=== PATIENT | female | born 1945 | race Caucasian/White ===

== ENCOUNTER 2024-10-07 20:38 | Emergency (ER) | payer OTHER ==
[2024-10-07 21:08] LABS: Absolute Basophils 0.1 K/uL (0-0.5); Absolute Eosinophils 0.4 K/uL (0-0.5); Absolute Lymphocytes (CBC) 2.6 K/uL (0.7-4.9); Absolute Monocytes 0.5 K/uL (0.1-1.3); Absolute Neutrophil 6.8 K/uL (1.8-8.0); Basophils % 1.1 % (0-1.3); Eosinophils % 4.2 % (0-4.4); Hematocrit 36.8 % (36.0-45.0); Hemoglobin 12.3 g/dL (12.0-15.0); MCH 29.2 pg (27.0-35.0); MCHC 33.4 g/dL (32.0-36.0); MCV 87.4 fL (80-100); MPV 8.1 fL (7.6-11.3); Monocytes % 4.6 % (3.3-12.3); Neutrophils % 65.1 % (41.7-73.7); Platelets 343 thou/uL (152-406); RBC Red Blood Cell Count 4.21 M/uL (3.86-4.86); Red Cell Distribution Width 14.4 % (12.1-15.2)
[2024-10-07 21:17] LABS: PT Prothrombin Time 12.2 SECONDS (10-13.0); PTT, Activated Partial Thromb 25.9 SECONDS (27.2-37.4); Protime INR 1.07
[2024-10-07 21:27] LABS: Influenza A Ag Negative; Influenza B Ag Negative; SARS-CoV-2 Antigen Rapid Res Negative (Negative)
[2024-10-07 21:28] LABS: Albumin 3.1 g/dL (3.4-5.0); Albumin/Globulin Ratio 0.7 (1.1-1.8); Anion Gap 6.8 mEq/L (5.0-15.0); Bilirubin Total 0.5 mg/dL (0.2-1.0); Globulin 4.2 g/dL (2.3-3.5); Potassium 3.8 mEq/L (3.5-5.1); Protein, Total 7.3 g/dL (6.4-8.2)
--- NOTE | 2024-10-07 22:05 | RAD REPORT ---
EXAMINATION: ONE VIEW CHEST XR CLINICAL INDICATION: Female, 79 years old.,COUGH TECHNIQUE: Frontal chest projection is submitted. Examination is limited by patient positioning and t echnique. COMPARISON: 10/06/2018 FINDINGS: The lungs are grossly clear although suboptimal inspiratory effort somewhat limits evaluation. Crowdi ng of the central vasculature. No pneumothorax or sizable effusion. The heart is normal in size. Mediastinal contours are unremarkable. IMPRESSION: No acute intrathoracic abnormalities.
--- NOTE | 2024-10-07 22:08 | EDPHYS ---
Physician Documentation [facility] Name: Ana Godinez Age: 79 yrs Sex: Female : 1945 Arrival Date: 10/07/2024 Time: 20:38 Bed 6 Private MD: ED Physician Celestino Chan HPI: 10/07 20:50 This 79 yrs old Female presents to ER via Unassigned with complaints of Flu ec2 Symptoms, Shortness Of Breath. 20:50 Patient arrives today for evaluation of cough symptoms. Patient been having cough with ec2 productive sputum, feeling subjectively short of breath, has lower extremity swelling as well.. Historical: - Allergies: 20:51 erythromycin; lg3 20:51 meloxicam; lg3 - Home Meds: 20:51 gabapentin oral [Active]; Fentanyl Patch Topical [Active]; Metformin Oral [Active]; lg3 Spironolactone Oral [Active]; - PMHx: 20:51 Diabetes mellitus; Arthritis; lg3 - PSHx: 20:51 Tonsillectomy; Total abdominal hysterectomy; lg3 - Immunization history:: Adult Immunizations up to date. - Infectious Disease History:: Denies. - Social history:: Smoking status: Patient denies any tobacco usage or history of. Patient/guardian denies using alcohol, street drugs. ROS: 20:50 Constitutional: as per hpi ec2 Exam: 20:50 Constitutional: GEN: NAD Head: atraumatic Eyes: EOMI Ears: External ears are ec2 normal. CV: Tachycardia LUNGS: no respiratory distress ABD: non-distended SKIN: no evidence of rashes, 1+ bilateral lower extremity edema noted. MSK: no evidence of trauma Vital Signs: 20:50 BP 174 / 74; Pulse 102; Resp 17 S; Temp 98.2(O); Pulse Ox 98% on R/A; Weight 115.67 kg lg3 (R); Height 5 ft. 6 in. (R); Pain 10/10; 21:40 BP 141 / 65; Pulse 94; Resp 18 S; Pulse Ox 96% on R/A; lg3 20:50 Body Mass Index 41.16 (115.67 kg, 167.64 cm) lg3 20:50 Pain Scale: Adult lg3 MDM: 20:49 Medical Screening Exam initiated ec2 21:14 Data reviewed: vital signs, nurses notes. ED course: EKG independently reviewed and ec2 interpreted by me, shows normal sinus rhythm, rate 93, no acute ST segment elevations, intervals are nonactionable.. 21:31 ED course: Metabolic profile shows some kidney dysfunction, hyperglycemia noted. CBC is ec2 reassuring. Viral swabs are negative. BNP within normal ranges.. 10/07 20:49 Order name: Blood Culture Adult (2) ec2 10/07 20:49 Order name: CBC with Diff; Complete Time: 21:31 ec2 10/07 20:49 Order name: CMP; Complete Time: 21:31 ec2 10/07 20:49 Order name: Lactate w/ 2H reflex if indic.; Complete Time: 21:39 ec2 10/07 20:49 Order name: Protime (+inr); Complete Time: 21:31 ec2 10/07 20:49 Order name: Ptt, Activated; Complete Time: 21:31 ec2 10/07 20:49 Order name: COVID-19 Ag + Flu A+B Ag; Complete Time: 21:31 ec2 10/07 20:50 Order name: BNP; Complete Time: 21:31 ec2 10/07 21:19 Order name: Glucose, Ancillary Testing; Complete Time: 21:31 EDMS 10/07 20:49 Order name: Chest Single View XRAY; Complete Time: 22:06 ec2 10/07 20:49 Order name: Accucheck; Complete Time: 21:03 ec2 10/07 20:49 Order name: Cardiac monitoring; Complete Time: 21:03 ec2 10/07 20:49 Order name: EKG - Nurse/Tech; Complete Time: 21:03 ec2 10/07 20:49 Order name: IV Saline Lock - Large Bore; Complete Time: 21:02 ec2 10/07 20:49 Order name: Labs collected and sent; Complete Time: 21:02 ec2 10/07 20:49 Order name: O2 Per Protocol; Complete Time: 21:02 ec2 10/07 20:49 Order name: O2 Sat Monitoring; Complete Time: 21:02 ec2 10/07 20:49 Order name: Vital Signs; Complete Time: 21:02 ec2 Administered Medications: 22:34 Drug: Hydrocodone-Acetaminophen PO (7.5 mg-325 mg) 1 tabs PO once Route: PO; bm8 22:34 Follow up: Response: No adverse reaction; Medication Administered at Departure bm8 Disposition Summary: 10/07/24 22:07 Discharge Ordered Notes: Location: Home ec2 Condition: Stable ec2 Diagnosis - Dyspnea, unspecified ec2 Followup: ec2 - With: Private Physician - When: - Reason: Re-evaluation by your physician Discharge Instructions: - Discharge Summary Sheet ec2 - Shortness of Breath, Adult, [id number] ec2 Forms: - Medication Reconciliation Form ec2 - Antibiotic Education ec2 - Prescription Opioid Use ec2 - Patient Portal Instructions ec2 - Leadership Thank You Letter ec2 Signatures: Dispatcher [employer] Rosmery Barron RN RN lg3 Celestino Chan MD MD ec2 Jose Goff RN RN bm8 Corrections: (The following items were deleted from the chart) 20:50 20:50 BLOOD CULTURE*+BA.LAB.BRZ ordered. EDMS EDMS 20:50 20:50 CBC+H.LAB.BRZ ordered. EDMS EDMS 20:50 20:50 COMPREHENSIVE METABOLIC PANEL+C.LAB.BRZ ordered. EDMS EDMS 20:50 20:50 LACTATE+C.LAB.BRZ ordered. EDMS EDMS 20:50 20:50 PROTIME (+INR)+COAG.LAB.BRZ ordered. EDMS EDMS 20:50 20:50 PTT, ACTIVATED+COAG.LAB.BRZ ordered. EDMS EDMS 20:50 20:50 COVID-19 Ag + Flu A+B Ag+I.LAB.BRZ ordered. EDMS EDMS 20:50 20:50 Chest Single View+RAD.RAD.BRZ ordered. EDMS EDMS 20:50 20:50 Patient arrives today for evaluation of cough symptoms. Patient been having cough ec2 with productive sputum, feeling subjectively short of breath, has lower extremity swelling as well.. ec2
--- NOTE | 2024-10-07 22:08 | ER ---
Nurse's Notes [facility] Name: Ana Godinez Age: 79 yrs Sex: Female : 1945 Arrival Date: 10/07/2024 Time: 20:38 Bed 6 Private MD: Diagnosis: Dyspnea, unspecified Presentation: 10/07 20:50 Chief complaint: Patient states: SOB and nausea beginning this morning. Coronavirus lg3 screen: Client denies travel out of the [place] in the last 14 days. Ebola Screen: No symptoms or risks identified at this time. Initial Sepsis Screen: Does the patient meet any 2 criteria? No. Patient's initial sepsis screen is negative. Does the patient have a suspected source of infection? No. Patient's initial sepsis screen is negative. Risk Assessment: Do you want to hurt yourself or someone else? Patient reports no desire to harm self or others. Onset of symptoms was October 07, 2024. Care prior to arrival: Medication(s) given: zofran 4 mg. 20:50 Method Of Arrival: EMS: [facility] lg3 20:50 Acuity: DK 3 lg3 Triage Assessment: 20:51 General: Appears in no apparent distress. uncomfortable, Behavior is calm, cooperative. lg3 Pain: Complains of pain in all over Is chronic. EENT: No deficits noted. No signs and/or symptoms were reported regarding the EENT system. Neuro: No deficits noted. Lind Agitation-Sedation Scale (RASS): 0 - Alert and Calm Level of Consciousness is awake, alert, obeys commands, Oriented to person, place, time, situation. Cardiovascular: No deficits noted. Reports nausea, shortness of breath, Capillary refill < 3 seconds Clubbing of nail beds is absent JVD is absent Patient's skin is warm and dry. Respiratory: Reports shortness of breath Airway is patent Respiratory effort is even, unlabored, Respiratory pattern is regular, symmetrical, Breath sounds are clear bilaterally. Onset: The symptoms/episode began/occurred this morning, the patient has mild shortness of breath. GI: No deficits noted. Abdomen is round non-distended, obese, Reports nausea. : No signs and/or symptoms were reported regarding the genitourinary system. Derm: No deficits noted. No signs and/or symptoms reported regarding the dermatologic system. Skin is intact, is healthy with good turgor, Skin is dry, Skin is normal, Skin temperature is warm. Musculoskeletal: Circulation, motion, and sensation intact. Range of motion: intact in all extremities, Swelling present in right leg and left leg. Historical: - Allergies: 20:51 erythromycin; lg3 20:51 meloxicam; lg3 - Home Meds: 20:51 gabapentin oral [Active]; Fentanyl Patch Topical [Active]; Metformin Oral [Active]; lg3 Spironolactone Oral [Active]; - PMHx: 20:51 Diabetes mellitus; Arthritis; lg3 - PSHx: 20:51 Tonsillectomy; Total abdominal hysterectomy; lg3 - Immunization history:: Adult Immunizations up to date. - Infectious Disease History:: Denies. - Social history:: Smoking status: Patient denies any tobacco usage or history of. Patient/guardian denies using alcohol, street drugs. Screenin:[facility] ED Fall Risk Assessment (Adult) History of falling in the last 3 months, lg3 including since admission No falls in past 3 months (0 pts) Confusion or Disorientation No (0 pts) Intoxicated or Sedated No (0 pts) Impaired Gait Yes (1 pt) Mobility Assist Device Used Yes (1 pt) Altered Elimination No (0 pt) Score/Fall Risk Level 0 - 2 = Low Risk Oriented to surroundings, Maintained a safe environment, Educated pt \T\ family on fall prevention, incl call for assistance when getting out of bed, Assessed \T\ reinforced patient's understanding of fall precautions, Provided non-skid footwear. Abuse screen: Denies threats or abuse. Denies injuries from another. Nutritional screening: No deficits noted. Tuberculosis screening: No symptoms or risk factors identified. Assessment: 21:00 General: see triage assessment. Cardiovascular: No deficits noted. lg3 21:39 Reassessment: Patient appears in no apparent distress at this time. No changes from lg3 previously documented assessment. Patient and/or family updated on plan of care and expected duration. Pain level reassessed. Patient is alert, oriented x 3, equal unlabored respirations, skin warm/dry/pink. 21:43 Cardiovascular: Rhythm is sinus rhythm. lg3 Vital Signs: 20:50 BP 174 / 74; Pulse 102; Resp 17 S; Temp 98.2(O); Pulse Ox 98% on R/A; Weight 115.67 kg lg3 (R); Height 5 ft. 6 in. (R); Pain 10/10; 21:40 BP 141 / 65; Pulse 94; Resp 18 S; Pulse Ox 96% on R/A; lg3 20:50 Body Mass Index 41.16 (115.67 kg, 167.64 cm) lg3 20:50 Pain Scale: Adult lg3 ED Course: 20:45 First set of blood cultures drawn by ED staff. lg3 20:46 Patient arrived in ED. [email or web address] 20:49 Celestino Chan MD is Attending Physician. ec2 20:51 Triage completed. lg3 20:51 Arm band placed on right wrist. lg3 21:00 Chest Single View XRAY In Process Unspecified. EDMS 21:00 Patient has correct armband on for positive identification. Placed in gown. Bed in low lg3 position. Call light in reach. Side rails up X 1. Client placed on continuous cardiac and pulse oximetry monitoring. NIBP monitoring applied. holistic specialist on. Door closed. Noise minimized. Warm blanket given. Pillow given. 21:00 Maintain EMS IV. Dressing intact. Good blood return noted. Site clean \T\ dry. Gauge \T\ lg 3 site: 20 RFA. 21:00 Second set of blood cultures drawn by ED staff. lg3 21:02 BNP Sent. lg3 21:02 COVID-19 Ag + Flu A+B Ag Sent. lg3 21:02 Blood Culture Adult (2) Sent. lg3 21:02 CBC with Diff Sent. lg3 21:02 CMP Sent. lg3 21:02 Lactate w/ 2H reflex if indic. Sent. lg3 21:02 Protime (+inr) Sent. lg3 21:02 Ptt, Activated Sent. lg3 21:02 Initial lab(s) drawn, by ED staff, sent to lab. EKG done, by ED staff, reviewed by lg3 Celestino Chan MD. 21:39 Rosmery Bernal, RN is Primary Nurse. lg3 22:34 Provided Education on: post er care. bm8 22:34 No provider procedures requiring assistance completed. IV discontinued, intact, bm8 bleeding controlled, No redness/swelling at site. Pressure dressing applied. Administered Medications: 22:34 Drug: Hydrocodone-Acetaminophen PO (7.5 mg-325 mg) 1 tabs PO once Route: PO; bm8 22:34 Follow up: Response: No adverse reaction; Medication Administered at Departure bm8 Medication: 21:00 VIS not applicable for this client. lg3 Outcome: 22:07 Discharge ordered by . ec2 22:34 Discharged to home via wheelchair, with family, bm8 22:34 Condition: stable 22:34 Discharge instructions given to patient, family, Instructed on Demonstrated understanding of instructions, follow-up care, medications, 22:36 Patient left the ED. bm8 Signatures: Dispatcher [employer] Rosmery Barron, RN RN lg3 Kady Galaviz jj6 Celestino Chan MD MD ec2 Jose Goff RN RN bm8
[2024-10-07] MEDS ORDERED: HYDROCODONE/APAP 7.5/325 MG TAB ONE (22:11)
[2024-10-07 22:53] VITALS: TEMP 98.2
[2024-10-07 22:55] VITALS: BP 141/65; O2SAT 96
== END 2024-10-07 22:36 | disposition home or self-care (01) ==
LOC: ER 20:38
DX: R06.00 Dyspnea, unspecified (principal); R05.9 Cough, unspecified; E11.9 Type 2 diabetes mellitus without complications; Z11.52 Encounter for screening for COVID-19
CPT/HCPCS: 36415; 71045; 80053; 82947; 83605; 83880; 85025; 85610; 85730; 87040; 87428; 93005; 99284

== ENCOUNTER 2024-11-16 15:15 | Emergency (ER) | payer OTHER ==
[2024-11-16 15:56] LABS: Absolute Basophils 0.1 K/uL (0-0.5); Absolute Lymphocytes (CBC) 1.2 K/uL (0.7-4.9); Absolute Monocytes 0.5 K/uL (0.1-1.3); Absolute Neutrophil 6.6 K/uL (1.8-8.0); Basophils % 0.7 % (0-1.3); Eosinophils % 0.4 % (0-4.4); Hemoglobin 11.7 g/dL (12.0-15.0); Lymphocytes % 13.9 % (15.3-44.8); MCH 29.2 pg (27.0-35.0); MCHC 34.4 g/dL (32.0-36.0); MCV 84.8 fL (80-100); MPV 7.9 fL (7.6-11.3); Monocytes % 5.5 % (3.3-12.3); Neutrophils % 79.5 % (41.7-73.7); Platelets 302 thou/uL (152-406); RBC Red Blood Cell Count 4.01 M/uL (3.86-4.86); Red Cell Distribution Width 13.8 % (12.1-15.2)
[2024-11-16] MEDS ORDERED: NA CHLORIDE 0.9% 500 ML ONE (15:57)
[2024-11-16] MEDS ORDERED: HYDROCODONE/APAP 5/325 MG TAB ONE (15:57)
[2024-11-16 16:14] LABS: Albumin 3.1 g/dL (3.4-5.0); Albumin/Globulin Ratio 0.7 (1.1-1.8); Anion Gap 8.9 mEq/L (5.0-15.0); Bilirubin Total 0.5 mg/dL (0.2-1.0); Globulin 4.3 g/dL (2.3-3.5); Potassium 3.9 mEq/L (3.5-5.1); Protein, Total 7.4 g/dL (6.4-8.2)
[2024-11-16 16:27] LABS: Sqamous Epithelial <5 /HPF (None Seen); Urine Bacteria None Seen /HPF (<20); Urine Microscopic Reflex YN ORDER UMIC; Urine RBC <5 /HPF (None Seen); Urine WBC <5 /HPF (<5); Urine Yeast (Budding) Trace /HPF (None Seen)
[2024-11-16 16:29] LABS: Specific Gravity 1.011 (1.005-1.030); Urine Bilirubin Negative (Negative); Urine Blood Negative (Negative); Urine Clarity Turbid (Clear); Urine Color Colorless (Yellow); Urine Culture Reflex Order NOT NEEDED; Urine Glucose 4+ (Negative); Urine Ketones 1+ (Negative); Urine Protein 1+ (Negative)
[2024-11-16 16:30] LABS: Urine Nitrite Negative (Negative); Urine Urobilinogen Normal (Normal)
--- NOTE | 2024-11-16 16:50 | EDPHYS ---
Physician Documentation [facility] Name: Ana Godinez Age: 79 yrs Sex: Female : 1945 Arrival Date: 11/16/2024 Time: 15:15 Bed 7 Private MD: ED Physician Jayant Augustine HPI: 11/16 15:32 This 79 yrs old Female presents to ER via EMS with complaints of Rash, weakness. sp3 15:32 79-year-old female with a history of diabetes, morbid obesity, arthritis now presents sp3 to the ED with chief complaint of bilateral leg wounds/redness as well as weeping from just under her pannus bilaterally. She denies any fever, chest pain, shortness of breath, abdominal pain, or any other signs or symptoms on ROS at this time.. Historical: - Allergies: 15:36 Erythromycin; ph 15:36 meloxicam; ph - Home Meds: 15:36 Fentanyl Patch Topical [Active]; gabapentin oral [Active]; Metformin Oral [Active]; ph Metformin Oral [Active]; Spironolactone Oral [Active]; - PMHx: 15:36 Arthritis; diabetes mellitus; ph - PSHx: 15:36 Tonsillectomy; Total abdominal hysterectomy; ph - Immunization history:: Adult Immunizations unknown. - Infectious Disease History:: Denies. - Social history:: Smoking status: Patient denies any tobacco usage or history of. ROS: 15:33 Constitutional: Negative for fever, chills, and weight loss, Eyes: Negative for injury, sp3 pain, redness, and discharge, ENT: Negative for injury, pain, and discharge, Neck: Negative for injury, pain, and swelling, Cardiovascular: Negative for chest pain, palpitations, and edema, Respiratory: Negative for shortness of breath, cough, wheezing, and pleuritic chest pain, Abdomen/GI: Negative for abdominal pain, nausea, vomiting, diarrhea, and constipation, Back: Negative for injury and pain, MS/Extremity: Negative for injury and deformity, Psych: Negative for depression, anxiety, suicide ideation, homicidal ideation, and hallucinations, Allergy/Immunology: Negative for hives, rash, and allergies, Endocrine: Negative for neck swelling, polydipsia, polyuria, polyphagia, and marked weight changes, Hematologic/Lymphatic: Negative for swollen nodes, abnormal bleeding, and unusual bruising, 15:33 All other systems are negative, Exam: 15:33 Constitutional: This is a well developed, well nourished patient who is awake, alert, sp3 and in no acute distress. Head/Face: Normocephalic, atraumatic. Eyes: Pupils equal round and reactive to light, extra-ocular motions intact. Lids and lashes normal. Conjunctiva and sclera are non-icteric and not injected. Cornea within normal limits. Periorbital areas with no swelling, redness, or edema. ENT: Nares patent. No nasal discharge, no septal abnormalities noted. External auditory canals are clear. Oropharynx with no redness, swelling, or masses, exudates, or evidence of obstruction, uvula midline. Mucous membranes moist. Neck: Trachea midline, no thyromegaly or masses palpated, and no cervical lymphadenopathy. Supple, full range of motion without nuchal rigidity, or vertebral point tenderness. No Meningismus. Chest/axilla: Normal chest wall appearance and motion. Nontender with no deformity. No lesions are appreciated. Cardiovascular: Regular rate and rhythm with a normal S1 and S2. No gallops, murmurs, or rubs. Normal PMI, no JVD. No pulse deficits. Respiratory: Lungs have equal breath sounds bilaterally, clear to auscultation and percussion. No rales, rhonchi or wheezes noted. No increased work of breathing, no retractions or nasal flaring. Abdomen/GI: Soft, non-tender, with normal bowel sounds. No distension or tympany. No guarding or rebound. No evidence of tenderness throughout. Back: No spinal tenderness. No costovertebral tenderness. Full range of motion. Neuro: Awake and alert, GCS 15, oriented to person, place, time, and situation. Cranial nerves II-XII grossly intact. Motor strength 5/5 in all extremities. Sensory grossly intact. Cerebellar exam normal. Normal gait. Psych: Awake, alert, with orientation to person, place and time. Behavior, mood, and affect are within normal limits. 15:33 Skin: Mild erythema noted bilaterally underneath the pannus folds. Mild erythema to the legs. No overt signs of infection noted. No leg circumference discrepancy.. 16:37 ECG was reviewed by the Attending Physician. EKG demonstrates sinus tachycardia at 106 sp3 bpm with occasional PVC, normal axis, normal QRS, normal axis ST changes without evidence of acute ischemia. Vital Signs: 15:42 BP 173 / 78; Pulse 107; Resp 18; Temp 97.8; Pulse Ox 98% on R/A; Weight 127.01 kg; ph 16:00 BP 167 / 92; Pulse 107; Resp 17 S; Pulse Ox 96% on R/A; ha1 17:00 BP 150 / 70; Pulse 108; Resp 17 S; Pulse Ox 96% on R/A; ha1 18:03 BP 130 / 72; Pulse 106; Resp 17 S; Pulse Ox 97% on R/A; ha1 MDM: 15:25 Medical Screening Exam initiated sp3 15:35 Data reviewed: vital signs, nurses notes, EMS record, old medical records, lab test sp3 result(s). ED course: 79-year-old female with rash and weeping. Differential diagnosis includes cellulitis, lymph drainage, lymphedema, among others. Will obtain general labs including lactate. Vital signs not significantly abnormal. Possible discharge home if workup negative. Patient will likely need placement in usp as she is unable to handle her ADLs well and states that her son is having a harder time managing her. Will defer that to PCP and family.. 16:49 ED course: Full workup negative. I will going to put patient on Bactrim sp3 prophylactically. I have urged her to seek help and potentially moved to a usp. We will discharge her home at this time after her insulin.. 11/16 15:26 Order name: Blood Culture Adult (2) sp3 11/16 15:26 Order name: CBC with Diff; Complete Time: 16:36 sp3 11/16 15:26 Order name: CMP; Complete Time: 16:36 sp3 11/16 15:26 Order name: Lactate w/ 2H reflex if indic.; Complete Time: 16:36 sp3 11/16 15:26 Order name: Urinalysis w/ reflexes; Complete Time: 16:36 sp3 11/16 18:09 Order name: Glucose, Ancillary Testing; Complete Time: 18:11 EDMS 11/16 15:26 Order name: Accucheck; Complete Time: 16:07 sp3 11/16 15:26 Order name: Cardiac monitoring; Complete Time: 16:07 sp3 11/16 15:26 Order name: EKG - Nurse/Tech; Complete Time: 16:07 sp3 11/16 15:26 Order name: IV Saline Lock - Large Bore; Complete Time: 15:50 sp3 11/16 15:26 Order name: Labs collected and sent; Complete Time: 15:50 sp3 11/16 15:26 Order name: O2 Per Protocol; Complete Time: 15:50 sp3 11/16 15:26 Order name: O2 Sat Monitoring; Complete Time: 15:50 sp3 11/16 15:26 Order name: Vital Signs; Complete Time: 15:50 sp3 Administered Medications: 16:06 Drug: NS 0.9% IV 500 ml 500 ml IV at 1 bolus once; to be given as a bolus over 30 ha1 minutes Volume: 500 ml; Route: IV; Rate: 1 bolus; Site: right antecubital; 17:18 Follow up: Response: No adverse reaction; IV Status: Completed infusion ha1 16:07 Drug: HYDROcodone-acetaminophen PO 5 mg-325 mg 1 tabs PO once Route: PO; ha1 16:40 Follow up: Response: No adverse reaction; Pain is unchanged, physician notified; RASS: ha1 Alert and Calm (0) 17:02 Drug: Insulin Regular Human IVP 10 units IVP once {Co-Signature: ha1 (Shavon Chavarria ph RN).} Route: IVP; Site: right antecubital; 18:01 Follow up: Response: No adverse reaction; Blood sugar is lowered ha1 Disposition Summary: 11/16/24 16:49 Discharge Ordered Notes: Location: Home sp3 Condition: Stable sp3 Diagnosis - Lymphedema, hyperglycemia, chronic pain sp3 Followup: sp3 - With: Private Physician - When: Upon discharge from the Emergency Department - Reason: Recheck today's complaints, Continuance of care Discharge Instructions: - Discharge Summary Sheet sp3 - Lymphedema sp3 Forms: - Medication Reconciliation Form sp3 - Antibiotic Education sp3 - Prescription Opioid Use sp3 - Patient Portal Instructions sp3 - Leadership Thank You Letter sp3 Prescriptions: - Bactrim DS 800-160 mg Oral Tablet - take 1 tablet ORAL route every 12 hours for 7 days; 14 tablet; Refills: 0, sp3 Product Selection Permitted Signatures: Dispatcher [employer] Sydney Downey RN RN ph Jayant Augustine MD MD sp3 Shavon Chavarria, RN RN ha1 Shavon Chavarria RN ha1 Corrections: (The following items were deleted from the chart) : 15: BLOOD CULTURE*+BA.LAB.BRZ ordered. EDMS EDMS 15: CBC+H.LAB.BRZ ordered. EDMS EDMS : 15: COMPREHENSIVE METABOLIC PANEL+C.LAB.BRZ ordered. EDMS EDMS : 15: LACTATE+C.LAB.BRZ ordered. EDMS EDMS : 15:26 Urinalysis+U.LAB.BRZ ordered. EDMS EDMS
--- NOTE | 2024-11-16 16:50 | ER ---
Nurse's Notes [facility] Name: Ana Godinez Age: 79 yrs Sex: Female : 1945 Arrival Date: 11/16/2024 Time: 15:15 Bed 7 Private MD: Diagnosis: Lymphedema, hyperglycemia, chronic pain Presentation: 11/16 15:25 Chief complaint: EMS states: N/V last night, weeping sores on lower legs, VSS, did not ph take morning meds. Coronavirus screen: Vaccine status: Patient reports being unvaccinated. Ebola Screen: No symptoms or risks identified at this time. Initial Sepsis Screen: Does the patient meet any 2 criteria? No. Patient's initial sepsis screen is negative. Does the patient have a suspected source of infection? No. Patient's initial sepsis screen is negative. Risk Assessment: Do you want to hurt yourself or someone else? Patient reports no desire to harm self or others. Onset of symptoms. 15:25 Method Of Arrival: EMS: [facility] ph 15:25 Acuity: DK 3 ph Historical: - Allergies: 15:36 Erythromycin; ph 15:36 meloxicam; ph - Home Meds: 15:36 Fentanyl Patch Topical [Active]; gabapentin oral [Active]; Metformin Oral [Active]; ph Metformin Oral [Active]; Spironolactone Oral [Active]; - PMHx: 15:36 Arthritis; diabetes mellitus; ph - PSHx: 15:36 Tonsillectomy; Total abdominal hysterectomy; ph - Immunization history:: Adult Immunizations unknown. - Infectious Disease History:: Denies. - Social history:: Smoking status: Patient denies any tobacco usage or history of. Screenin:44 Abuse screen: Denies threats or abuse. Denies injuries from another. Nutritional ph screening: No deficits noted. Tuberculosis screening: No symptoms or risk factors identified. 16:00 [facility] ED Fall Risk Assessment (Adult) History of falling in the last 3 months, ha1 including since admission Yes- single mechanical fall (1 pt) Confusion or Disorientation No (0 pts) Intoxicated or Sedated No (0 pts) Impaired Gait Yes (1 pt) Mobility Assist Device Used Yes (1 pt) Altered Elimination No (0 pt) Score/Fall Risk Level 3 or more points = High Risk Oriented to surroundings, Maintained a safe environment, Educated pt \T\ family on fall prevention, incl call for assistance when getting out of bed, Hourly rounding (assess needs \T\ fall precautionary measures) done. Assessment: 15:30 General: Appears uncomfortable, Behavior is cooperative. Pain: Complains of pain in ha1 right leg and left leg Pain currently is 8 out of 10 on a pain scale. Quality of pain is described as crampy, Pain began 2-3 days ago. Neuro: Level of Consciousness is awake, alert, obeys commands, Oriented to person, place, time, situation. Cardiovascular: Capillary refill < 3 seconds. Respiratory: Airway is patent Respiratory effort is even, unlabored, Respiratory pattern is regular, symmetrical. GI: No signs and/or symptoms were reported involving the gastrointestinal system. Abdomen is round obese. : No signs and/or symptoms were reported regarding the genitourinary system. Derm: Skin is normal. Musculoskeletal: Circulation, motion, and sensation intact. Swelling present in right leg, lateral aspect of left calf, left calf, medial aspect of left calf and left berry. 16:20 Reassessment: Patient and/or family updated on plan of care and expected duration. Pain ha1 level reassessed. Patient is alert, oriented x 3, equal unlabored respirations, skin warm/dry/pink. 17:08 Reassessment: Patient and/or family updated on plan of care and expected duration. Pain ha1 level reassessed. Patient is alert, oriented x 3, equal unlabored respirations, skin warm/dry/pink. 17:17 Reassessment: DISCHARGE PENDING, AWAITING ON TRANSPORTATION. ha1 18:02 Reassessment: Patient and/or family updated on plan of care and expected duration. Pain ha1 level reassessed. Patient is alert, oriented x 3, equal unlabored respirations, skin warm/dry/pink. Vital Signs: 15:42 BP 173 / 78; Pulse 107; Resp 18; Temp 97.8; Pulse Ox 98% on R/A; Weight 127.01 kg; ph 16:00 BP 167 / 92; Pulse 107; Resp 17 S; Pulse Ox 96% on R/A; ha1 17:00 BP 150 / 70; Pulse 108; Resp 17 S; Pulse Ox 96% on R/A; ha1 18:03 BP 130 / 72; Pulse 106; Resp 17 S; Pulse Ox 97% on R/A; ha1 ED Course: 15:23 Patient arrived in ED. bd 15:23 Patient has correct armband on for positive identification. Placed in gown. Bed in low ha1 position. Call light in reach. Side rails up X2. 15:25 Jayant Augustine MD is Attending Physician. sp3 15:27 Triage completed. ph 15:31 Inserted saline lock: 20 gauge in right antecubital area, using aseptic technique. ha1 Blood collected. Flushed with 10 mL NS. 15:36 Arm band placed on. ph 15:50 Blood Culture Adult (2) Sent. ha1 15:50 CBC with Diff Sent. ha1 15:51 CMP Sent. ha1 15:51 Lactate w/ 2H reflex if indic. Sent. ha1 18:02 Shavon Chavarria, RN is Primary Nurse. ha1 18:04 No provider procedures requiring assistance completed. IV discontinued, intact, ha1 bleeding controlled, No redness/swelling at site. Pressure dressing applied. Administered Medications: 16:06 Drug: NS 0.9% IV 500 ml 500 ml IV at 1 bolus once; to be given as a bolus over 30 ha1 minutes Volume: 500 ml; Route: IV; Rate: 1 bolus; Site: right antecubital; 17:18 Follow up: Response: No adverse reaction; IV Status: Completed infusion ha1 16:07 Drug: HYDROcodone-acetaminophen PO 5 mg-325 mg 1 tabs PO once Route: PO; ha1 16:40 Follow up: Response: No adverse reaction; Pain is unchanged, physician notified; RASS: ha1 Alert and Calm (0) 17:02 Drug: Insulin Regular Human IVP 10 units IVP once {Co-Signature: ha1 (Shavon Chavarria ph RN).} Route: IVP; Site: right antecubital; 18:01 Follow up: Response: No adverse reaction; Blood sugar is lowered ha1 Medication: 15:44 VIS not applicable for this client. ph Outcome: 16:49 Discharge ordered by . sp3 18:04 Condition: stable ha1 18:04 Discharge instructions given to patient, Instructed on discharge instructions, follow up and referral plans. medication usage, Demonstrated understanding of instructions, follow-up care, medications, Prescriptions given X 1, 18:28 Patient left the ED. ll1 Signatures: Violeta Kang Patricia RN RN [facility], CHAYITO Jones RN ll1 Jayant Augustine MD MD 3 Shavon Chavarria RN RN ha1 Shavon Chavarria RN ha1
[2024-11-16] MEDS ORDERED: INSULIN REGULAR (HUMAN) 100 UNIT/ML ONE (17:00)
[2024-11-16 19:31] VITALS: TEMP 97.8
[2024-11-16 19:39] VITALS: BP 130/72; O2SAT 97
--- NOTE | 2024-11-17 12:11 | EKG ---
Test Date: 2024-11-16 Test Time: 15:56:46 Research Hydraulic Engineer: MAIRA MEASUREMENT RESULTS: Intervals: Rate: 106 DC: 174 QRSD: 80 QT: 346 QTc: 459 Barnard: P: 54 DC: 174 QRS: -14 T: 37 INTERPRETIVE STATEMENTS: Sinus tachycardia with occasional premature ventricular complexes Low voltage QRS Inferior infarct, age undetermined Abnormal ECG Compared to ECG 10/07/2024 21:11:22 Ventricular premature complex(es) now present Sinus rhythm no longer present Atrial premature complex(es) no longer present Myocardial infarct finding still present Electronically Signed On 11-17-24 12:08:56 CDT by Kavon Bustamante
== END 2024-11-16 18:28 | disposition home or self-care (01) ==
LOC: ER 15:15
DX: I89.0 Lymphedema, not elsewhere classified (principal); E11.65 Type 2 diabetes mellitus with hyperglycemia; G89.29 Other chronic pain
CPT/HCPCS: 96361; 93005; 87040 ×2; 85025; 81001; 36415; 82947; 83605; 80053; 96374; 99284; J1815; J7040

== ENCOUNTER 2025-05-14 08:37 | Emergency (ER) | payer OTHER ==
[2025-05-14] MEDS ORDERED: METFORMIN HCL 500 MG TAB ONE (09:09)
[2025-05-14] MEDS ORDERED: ONDANSETRON 4 MG/2 ML VIAL ONE (09:09)
[2025-05-14] MEDS ORDERED: FENTANYL CITR 100 MCG/2 ML ONE (09:19)
--- NOTE | 2025-05-14 09:40 | RAD REPORT ---
EXAMINATION: XR Hip Right 2 View CLINICAL INDICATION: Female, 79 years old. [facility] MAIN Pain;Swelling Bed: TECHNIQUE: 2 view radiograph of the right hip were obtained. COMPARISON: No prior exam. FINDINGS: No evidence of fracture or dislocation. Normal alignment. Mild right hip degenerative chandler es. No other focal bone lesion. Soft tissues are unremarkable. IMPRESSION: No acute osseous abnormalities. Mild right hip degenerative changes.
--- NOTE | 2025-05-14 09:41 | RAD REPORT ---
EXAMINATION: XR Foot Right 3 View CLINICAL INDICATION: Female, 79 years old. [facility] MAIN Pain;Swelling Bed: TECHNIQUE: 3 view radiographs of the right foot were obtained. COMPARISON: No prior exam. FINDINGS: No evidence of fracture or dislocation. No suspicious focal osseous lesion or erosion. Norm al alignment. Moderate scattered degenerative changes. Soft tissue swelling about the forefoot. More pronounced swelling laterally with soft tissue defect adjacent to the fifth metatarsophalangeal articulation. IMPRESSION: No acute osseous abnormalities. Soft tissue abnormalities as above with suspected ulcer along the lat eral forefoot. If there is concern for acute osteomyelitis, additional evaluation by MRI with provide improved asses sment.
--- NOTE | 2025-05-14 09:53 | ER ---
Nurse's Notes [facility] [place] Name: Ana Godinez Age: 79 yrs Sex: Female : 1945 Arrival Date: 05/14/2025 Time: 08:37 Bed 14 Private MD: Diagnosis: Pain in right hip Presentation: 05/14 08:53 Chief complaint: Patient states: she had slid out of her recliner this morning onto her ap3 bottom and is having right hip and right leg pain. patient also complains of bilateral lower extremity pain and swelling. Coronavirus screen: At this time, the client does not indicate any symptoms associated with coronavirus-19. Ebola Screen: No symptoms or risks identified at this time. Initial Sepsis Screen: Does the patient meet any 2 criteria? No. Patient's initial sepsis screen is negative. Does the patient have a suspected source of infection? No. Patient's initial sepsis screen is negative. Risk Assessment: Do you want to hurt yourself or someone else? Patient reports no desire to harm self or others. Onset of symptoms was May 14, 2025. 08:53 Method Of Arrival: EMS: [facility] ap3 08:53 Acuity: DK 3 ap3 08:58 Care prior to arrival: IV initiated. 20 GA, in the left antecubital area. Transition of ap3 care: patient was not received from another setting of care. Triage Assessment: 08:58 General: Appears in no apparent distress. Behavior is calm, cooperative, appropriate ap3 for age. Pain: Complains of pain in right hip and right leg Pain currently is 7 out of 10 on a pain scale. Pain began this morning. Neuro: Level of Consciousness is awake, alert, obeys commands, Oriented to person, place, time, situation, Appropriate for age. Cardiovascular: Patient's skin is warm and dry. Respiratory: Airway is patent Respiratory effort is even, unlabored, Respiratory pattern is regular, symmetrical. Historical: - Allergies: 08:57 Erythromycin; ap3 08:57 meloxicam; ap3 - PMHx: 08:57 Arthritis; diabetes mellitus; ap3 - PSHx: 08:57 Tonsillectomy; Total abdominal hysterectomy; ap3 - Immunization history:: Adult Immunizations up to date. - Infectious Disease History:: Denies. - Social history:: Smoking status: Patient denies any tobacco usage or history of. Screenin:59 [facility] ED Fall Risk Assessment (Adult) History of falling in the last 3 months, ap3 including since admission Yes- fall prone (multiple falls) (3 pts) Confusion or Disorientation No (0 pts) Intoxicated or Sedated No (0 pts) Impaired Gait Yes (1 pt) Mobility Assist Device Used No (0 pt) Altered Elimination Yes (1 pt) Score/Fall Risk Level 3 or more points = High Risk Oriented to surroundings, Maintained a safe environment, Educated pt \T\ family on fall prevention, incl call for assistance when getting out of bed, Assessed \T\ reinforced patient's understanding of fall precautions, Hourly rounding (assess needs \T\ fall precautionary measures) done, Used ambulatory aids as needed (educated on \T\ assisted with). Abuse screen: Denies threats or abuse. Nutritional screening: No deficits noted. Tuberculosis screening: No symptoms or risk factors identified. Assessment: 10:33 Reassessment: report given to EMS. ap3 Vital Signs: 08:53 BP 148 / 83; Pulse 88; Resp 18; Temp 98; Pulse Ox 97% ; Weight 104.33 kg; ap3 08:53 Pain 7/10; ap3 10:35 BP 143 / 78; Pulse 68; Resp 18; Pulse Ox 98% on R/A; ap3 08:53 Pain Scale: Adult ap3 ED Course: 08:46 Patient arrived in ED. cj3 08:46 Thierry Calderon FNP-C is [facility]. dr5 08:46 Brando Bass MD is Attending Physician. dr5 08:52 Sharee Kang RN is Primary Nurse. ap3 08:57 Triage completed. ap3 08:59 Arm band placed on right wrist. ap3 08:59 Patient has correct armband on for positive identification. Bed in low position. Call ap3 light in reach. Side rails up X2. Provided Education on: call light education. Pulse ox on. NIBP on. Door closed. Noise minimized. 09:26 Hip Right 2 View XRAY In Process Unspecified. EDMS 09:26 Foot Right 3 View XRAY In Process Unspecified. EDMS 10:34 IV discontinued, intact, bleeding controlled, No redness/swelling at site. Pressure ap3 dressing applied. 10:34 No provider procedures requiring assistance completed. ap3 Administered Medications: 09:21 Not Given (Med on back order): morphineor iv 2 mg IVP once over 4 mins dr5 09:31 Drug: NS 0.9% IV 1000 ml IV at 1000 ml once; to be given as a bolus over 60 minutes hb Route: IV; Rate: 1000 ml; Site: left antecubital; 10:34 Follow up: IV Status: Completed infusion; IV Intake: 500ml ap3 09:31 Drug: metFORMIN PO 1000 mg PO once; with meal or snack Route: PO; hb 10:09 Follow up: Response: No adverse reaction ap3 09:31 Drug: Ondansetron IVP 4 mg IVP once; over 2 minutes Route: IVP; Site: left antecubital; hb 10:09 Follow up: Response: No adverse reaction ap3 09:31 Drug: fentaNYL (PF) IVP 50 mcg IVP once Route: IVP; Site: left antecubital; hb 10:09 Follow up: Response: No adverse reaction; Pain is decreased; RASS: Drowsy (-1) ap3 Medication: 10:34 VIS not applicable for this client. ap3 Intake: 10:34 IV: 500ml; Total: 500ml. ap3 Outcome: 09:52 Discharge ordered by MD. dr5 10:34 Discharged to home ambulatory, ap3 10:34 Condition: good 10:34 Discharge instructions given to patient, EMS, Instructed on discharge instructions, follow up and referral plans. Demonstrated understanding of instructions, follow-up care, 11:07 Patient left the ED. ap3 Signatures: Dispatcher [employer] EDMS Gabriela Levin RN RN Sharee Kang RN RN ap3 Thierry Calderon, INKING MACHINE TENDER-C INKING MACHINE TENDER-Cdr5 Sandee Chacon 3
--- NOTE | 2025-05-14 09:53 | EDPHYS ---
Physician Documentation [facility] Name: Ana Godinez Age: 79 yrs Sex: Female : 1945 Arrival Date: 05/14/2025 Time: 08:37 Bed 14 Private MD: ED Physician Brando Bass HPI: 05/14 10:52 This 79 yrs old Female presents to ER via EMS with complaints of Hip Pain. dr5 10:52 The patient or guardian reports pain. Onset: The symptoms/episode began/occurred dr5 acutely. Patient is a 79-year-old female with history of arthritis and diabetes coming in with right hip pain that occurred after she slid out of the recliner. Patient denies hitting head, denies losing consciousness. Patient reports that she has been having right hip pain for the past 6 months and fall worsened pain. Patient denies chest pain, shortness of breath, abdominal pain, nausea, vomiting or diarrhea.. Historical: - Allergies: 08:57 Erythromycin; ap3 08:57 meloxicam; ap3 - PMHx: 08:57 Arthritis; diabetes mellitus; ap3 - PSHx: 08:57 Tonsillectomy; Total abdominal hysterectomy; ap3 - Immunization history:: Adult Immunizations up to date. - Infectious Disease History:: Denies. - Social history:: Smoking status: Patient denies any tobacco usage or history of. ROS: 10:56 Constitutional: as per hpi dr5 Exam: 10:56 Constitutional: This is a well developed, well nourished patient who is awake, alert, dr5 and in no acute distress. Head/Face: Normocephalic, atraumatic. Eyes: Pupils equal round and reactive to light, extra-ocular motions intact. Lids and lashes normal. Conjunctiva and sclera are non-icteric and not injected. Cornea within normal limits. Periorbital areas with no swelling, redness, or edema. Neck: Trachea midline, no thyromegaly or masses palpated, and no cervical lymphadenopathy. Supple, full range of motion without nuchal rigidity, or vertebral point tenderness. No Meningismus. Chest/axilla: Normal chest wall appearance and motion. Nontender with no deformity. No lesions are appreciated. Cardiovascular: Regular rate and rhythm with a normal S1 and S2. Normal PMI, no JVD. No pulse deficits. Respiratory: Lungs have equal breath sounds bilaterally, clear to auscultation. No rales, rhonchi or wheezes noted. No increased work of breathing, no retractions or nasal flaring. Abdomen/GI: Soft, non-tender, non-distended Back: No spinal tenderness. No costovertebral tenderness. Full range of motion. Skin: Warm, dry with normal turgor. Normal color with no rashes, no lesions, and no evidence of cellulitis. MS/ Extremity: Pulses equal, no cyanosis. Neurovascular intact. Full, normal range of motion. Mild tenderness to palpation on right hip. Neuro: Awake and alert, GCS 15, oriented to person, place, time, and situation. Cranial nerves II-XII grossly intact. Motor strength 5/5 in all extremities. Sensory grossly intact. Cerebellar exam normal. Normal gait. Vital Signs: 08:53 BP 148 / 83; Pulse 88; Resp 18; Temp 98; Pulse Ox 97% ; Weight 104.33 kg; ap3 08:53 Pain 7/10; ap3 10:35 BP 143 / 78; Pulse 68; Resp 18; Pulse Ox 98% on R/A; ap3 08:53 Pain Scale: Adult ap3 MDM: 08:47 Medical Screening Exam initiated dr5 10:56 Differential diagnosis: hip fracture, bursitis, arthritis, strain. Data reviewed: vital dr5 signs, nurses notes, EMS record, radiologic studies, plain films. Consideration of Admission/Observation Escalation of care including admission/observation considered. Escalation considered patient found to have fracture. I considered the following discharge prescriptions or medication management in the emergency department Medications were administered in the Emergency Department. See MAR. Independent interpretation of the following test(s) in the Emergency Department X-Ray: My interpretation is Independent interpretation of hip x-ray does not reveal new acute fracture. Historians other than the Patient: Family Member: Son. Care significantly affected by the following chronic conditions: Diabetes, Arthritis. Care significantly affected by the following Social Determinants of Health: Poor access to healthcare and/or lack of insurance, Poor access to transportation, Problems related to employment. Counseling: I had a detailed discussion with the patient and/or guardian regarding the historical points, exam findings, and any diagnostic results supporting the discharge/admit diagnosis, the presence of at least one elevated blood pressure reading (>120/80) during this emergency department visit, radiology results, the need for outpatient follow up, for definitive care, a family practitioner, to return to the emergency department if symptoms worsen or persist or if there are any questions or concerns that arise at home. Medication response: Fentanyl. Response to treatment: the patient's symptoms have resolved after treatment, the patient is now symptom free. Special discussion: I discussed with the patient/guardian in detail that at this point there is no indication for admission to the hospital. It is understood, however, that if the symptoms persist or worsen the patient needs to return immediately for re-evaluation. Based on the history and exam findings, there is no indication for further emergent testing or inpatient evaluation. I discussed with the patient/guardian the need to see the orthopedic surgeon for further evaluation of the symptoms. I discussed with the patient/guardian the need to see the primary care provider for further evaluation of the symptoms. ED course: Patient has fentanyl patch currently on and [place] 10/325 at home. No fracture noted on x-ray. Will have patient follow-up with primary care doctor this week for further management and pain management. All questions answered. Strict ER precautions given. Patient sleeping prior to discharge instructions. Patient is agreeable to plan.. 05/14 08:48 Order name: Hip Right 2 View XRAY; Complete Time: 09:44 dr5 05/14 08:48 Order name: Foot Right 3 View XRAY; Complete Time: 09:44 dr5 Administered Medications: 09:21 Not Given (Med on back order): morphineor iv 2 mg IVP once over 4 mins dr5 09:31 Drug: NS 0.9% IV 1000 ml IV at 1000 ml once; to be given as a bolus over 60 minutes hb Route: IV; Rate: 1000 ml; Site: left antecubital; 10:34 Follow up: IV Status: Completed infusion; IV Intake: 500ml ap3 09:31 Drug: metFORMIN PO 1000 mg PO once; with meal or snack Route: PO; hb 10:09 Follow up: Response: No adverse reaction ap3 09:31 Drug: Ondansetron IVP 4 mg IVP once; over 2 minutes Route: IVP; Site: left antecubital; hb 10:09 Follow up: Response: No adverse reaction ap3 09:31 Drug: fentaNYL (PF) IVP 50 mcg IVP once Route: IVP; Site: left antecubital; hb 10:09 Follow up: Response: No adverse reaction; Pain is decreased; RASS: Drowsy (-1) ap3 Disposition Summary: 05/14/25 09:52 Discharge Ordered Notes: Location: Home dr5 Condition: Stable dr5 Diagnosis - Pain in right hip dr5 Followup: dr5 - With: Emergency Department - When: As needed - Reason: Worsening of condition Followup: dr5 - With: Private Physician - When: 1 - 2 days - Reason: Recheck today's complaints, Continuance of care, Re-evaluation by your physician Discharge Instructions: - Discharge Summary Sheet dr5 - Hip Pain dr5 - Arthritis, [id number]-Rihz dr5 Forms: - Medication Reconciliation Form dr5 - Patient Portal Instructions dr5 - Leadership Thank You Letter dr5 Signatures: Dispatcher [employer] EDGabriela Herrera RN RN Sharee Kang RN RN ap3 Thierry Calderon, ENGINEERING LEADER-C ENGINEERING LEADER-Cdr5 Corrections: (The following items were deleted from the chart) 08:48 08:48 Hip Right 2 View+RAD.RAD.BRZ ordered. EDMS EDMS 08:49 08:49 Foot Right 3 View+RAD.RAD.BRZ ordered. EDMS EDMS
[2025-05-14 14:41] VITALS: TEMP 98
[2025-05-14 14:42] VITALS: BP 143/78; O2SAT 98
== END 2025-05-14 11:07 | disposition home or self-care (01) ==
LOC: ER 08:37
DX: M25.551 Pain in right hip (principal)
CPT/HCPCS: 96361; 73502; 73630; 96375; 96374; 99284; J3010; J2405